=== PATIENT | male | born 1960 | race African-American/Black ===

== ENCOUNTER 2021-09-29 18:54 | Emergency (ER) | payer MEDICAID ==
[~2021-09-29] VITALS: Ht 175.3 cm; Wt 79.4 kg
[2021-09-29] MEDS ORDERED: LORA-259 PO (19:54)
--- NOTE | 2021-09-29 20:03 | NUR ---
Patient given written and verbal discharge instructions. Patient verbalizes understanding of instructions. Patient is ambulatory with steady gait. Refuses offer of senior living placement. Patient given list of available shelters in surrounding area.
[2021-09-29 20:04] VITALS: BP 145/88
== END 2021-09-29 20:04 | disposition home or self-care (01) ==
LOC: ER 18:57
DX: F41.9 Anxiety disorder, unspecified (principal); Z59.00 Homelessness unspecified; F17.210 Nicotine dependence, cigarettes, uncomplicated
CPT/HCPCS: A4663